=== PATIENT | female | born 1965 | race Caucasian/White ===

== ENCOUNTER → 2016-07-18 | Outpatient (CLI) | payer MEDICARE, MEDICAID ==
[~2016-07-18] MED LIST: ACTOS15 MG PO; ACTOS30 MG PO; BACTRIM DS 8001 TAB PO; BUPROPION HCL150 M2 PO; CIPROFLOXACIN500 MG OR; CYMBALTA30 MG PO; DOCUSATE SODIU250 M1 PO; ESTRADIOL1 MG PO; FAMOTIDINE 20MG20 MG PO; FLEXERIL10 MG PO; GELNIQUE TD; GLIMEPIRIDE 2MG2 MG PO; GOOD SENSE OMEP20 MG PO; HUMALOG MIX 75/10 ML SC; HYDROCODONE-APA1 TA1 PO; INDOCIN25 M1 PO; LANOXIN PO; LANOXIN0.125 MG PO; LANTUS INS100 UNITS/ SC; LASIX20 MG PO; LEVEMIR100 U/M1 SC; LEVOTHROID0.175 MG PO; LEVOTHYROXINE0.2 MG PO; LIPITOR40 MG PO; LORTAB 5/500 501 TAB PO; LORTAB 500 MG-71 TAB PO; LOVAZA1 GM PO; LOVENOX 10100 MG/11 SC; LYRICA 100 MG100 MG PO; LYRICA100 MG PO; METFORMIN500 MG PO; METOPROLOL TART50 MG PO; METOPROLOL25 MG PO; METOPROLOL50 MG PO; NIASPAN500 MG PO; NORCO 325 MG-101 TAB PO; NOVOLIN 70/30 710 ML SC; OMEPRAZOLE40 MG PO; PHENERGAN 25MG.25 M1 PO; POTASSIUM CHLO10 ME3 PO; PRINIVIL5 MG PO; PROMETHAZINE25 M1 PO; PYRIDIUM 200MG200 MG PO; PYRIDIUM100 MG PO; SULFAMETHOXAZOL1 TA6 PO; TALWIN NX 50MG50 MG PO; TYLENOL ES500 MG PO; ULTRAM 50 MG TA50 MG PO; VICODIN 5/500 T1 TAB PO
[2016-07-18 13:57] LABS: HEMOGLOBIN 14.8 g/dL (12.2-16.2); LYMPH # 1.6 K/mm3 (0.7-4.5); LYMPH % 37.1 % (10-50.0)
[2016-07-20 08:50] LABS: BUN 17 mg/dL (7-18); GFR (ESTIMATED) 43 ML/MIN (59-)
== END ==
LOC: CARL-LAB 10:50
PROVIDERS: Internal Medicine
DX: C50.911 Malignant neoplasm of unspecified site of right female breast (principal)

== ENCOUNTER → 2016-08-02 | Outpatient (CLI) | payer MEDICARE, MEDICAID ==
--- NOTE | 2016-08-08 11:12 | RADIOLOGY REPORT PS360 ---
DIG MAMM-DX UNI A/VW-RT W/CAD RIGHT BREAST ULTRASOUND COMPARISON: 03/21/2016 INDICATION: Follow-up abnormal mammogram ORDERING PHYSICIAN: Cesar Willis MD PATIENT AGE: 50 years TECHNIQUE: Standard images of performed with spot compression views. Right breast ultrasound FINDINGS: No discrete mass or malignant appearing microcalcification is evident. Nonspecific asymmetric density once again noted involving the medial aspect of the right breast which appears to compress out likely related to fibroglandular tissue. No malignant appearing mass or malignant appearing microcalcification. Right breast ultrasound: No suspicious nodules. 7 x 5 mm cyst is present at the 2:00 region.. There is an area of questionable shadowing at 2:00. This however did not persist with longitudinal imaging.. The previously noted complex area at 2:00 with a hyperechoic rim and hypoechoic center is not identified on today's exam and was likely due to a hematoma. The area of shadowing could represent some residual from that hematoma. IMPRESSION: Benign findings. No evidence of malignancy BI-RADS CATEGORY: 2_Benign RECOMMENDED FOLLOWUP: Bilateral screening mammogram October 2016 (A letter has been sent to the patient regarding results of the study.)
== END ==
LOC: RAD 12:12
DX: R92.8 Other abnormal and inconclusive findings on diagnostic imaging of breast (principal)
CPT/HCPCS: G0206-RT

== ENCOUNTER → 2017-01-12 | Outpatient (CLI) | payer MEDICARE, MEDICAID ==
[~2017-01-12] MED LIST changes: +HUMALOG KW200 UNIT/1 SQ; +HYDROXYZINE HCL25 M1 PO
[2017-01-13 08:44] LABS: AFP, Tumor Marker 4.9 ng/mL (0.0-8.3)
[2017-01-13 09:37] LABS: Hep C Virus Ab <0.1 (0.0-0.9)
== END ==
LOC: LAB 08:31
PROVIDERS: Internal Medicine
DX: Z85.528 Personal history of other malignant neoplasm of kidney (principal); Z85.43 Personal history of malignant neoplasm of ovary

== ENCOUNTER → 2017-04-14 | Outpatient (CLI) | payer MEDICARE, MEDICAID ==
[2017-04-14 11:05] LABS: HEMOGLOBIN 15.2 g/dL (12.2-16.2); LYMPH # 2.1 K/mm3 (0.7-4.5)
== END ==
LOC: LAB 09:46
PROVIDERS: Nurse Practitioner
DX: Z79.899 Other long term (current) drug therapy (principal)

== ENCOUNTER 2017-04-28 23:08 | Emergency (ER) | payer MEDICARE, MEDICAID ==
[~2017-04-28] VITALS: Ht 170.2 cm; Wt 94.8 kg
[2017-04-28] MEDS ORDERED: HUMULIN R500 UNIT/1 SQ (23:28)
--- OUTSIDE RECORDS SUMMARY | 2017-04-28 23:34 | External Medical Summary Rpt | CCD ---
Author Author , BASSEM LUEVANO Address Unknown Phone [email or web address] Care Team Providers Care Glass Products Inspector Name Role Phone Amando Ramirez MD, Unavailable Unavailable Amando Emery MD, Unavailable Unavailable Martina Emery MD Purpose Continuity of Care Document - 10-19-2012 through 2016 Problems Code Diagnosis DOS Provider Status M25.512 PAIN IN 04-26-2017 LEFT SHOULDER E11.65 TYPE 2 09-13-2016 DIABETES MELLITUS WITH HYPERGLYCEM IA E87.1 HYPO-OSMOLA 09-13-2016 [place] AND HYPONATREMI A 250.00 250.00 DIAB 01-15-2013 [facility], TYPE Hospital II OR UNSPEC TYPE, NOT UNCNTRLD 401.9 401.9 01-15-2013 [place] HYPERTENSIO [facility] N [facility] 729.5 729.5 PAIN 01-15-2013 [place] IN LIMB [facility] V14.0 V14.0 01-15-2013 [place] HX-PENICILL [facility] IN [facility]ERGY Hospital 244.9 244.9 11-18-2012 [place] [facility].01 250.01 DIAB 11-18-2012 [facility], TYPE Hospital I [JUVENILE TYPE], NOT UNCNTRLD 728.71 728.71 11-18-2012 [place] PLANTAR [facility] FIBROMATOSI Hospital S 825.25 825.25 FX 11-18-2012 [place] METATARSAL- [facility] CLOSED Hospital 845.00 845.00 11-18-2012 [place] SPRAIN OF [facility] ANKLE [facility] C56.2 MALIGNANT NEOPLASM OF LEFT OVARY C56.9 MALIGNANT NEOPLASM OF UNSPECIFIED OVARY C64.9 MALIGNANT NEOPLASM OF UNSP KIDNEY, 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 E11.69 TYPE 2 DIABETES MELLITUS WITH OTHER SPECIFIED COMPLICATIO N E11.9 TYPE 2 DIABETES MELLITUS WITHOUT COMPLICATIO NS M54.2 CERVICALGIA N63 UNSPECIFIED LUMP IN BREAST R06.02 SHORTNESS OF BREATH R07.9 CHEST PAIN, UNSPECIFIED R10.9 UNSPECIFIED ABDOMINAL PAIN R53.81 OTHER MALAISE R53.83 OTHER FATIGUE R55 SYNCOPE AND COLLAPSE R92.8 OTH ABN AND INCONCLUSIV E FINDINGS ON DX IMAGING OF BREAST S80.02XA CONTUSION OF LEFT KNEE, INITIAL ENCOUNTER Z03.89 ENCNTR FOR OBS FOR OTH SUSPECTED DISEASES AND COND RULED OUT Z12.31 ENCNTR SCREEN MAMMOGRAM FOR MALIGNANT NEOPLASM OF BREAST Z56.9 UNSPECIFIED PROBLEMS RELATED TO EMPLOYMENT 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 Z85.43 PERSONAL HISTORY OF MALIGNANT NEOPLASM OF OVARY Allergies, Adverse Reactions, Alerts Type Allergy to substance Drug Allergy Adverse Reaction to Substance Substance Reaction Severity PENCILLIN Unknown Unknown Penicillin I-HIVES Unknown Aspirin HAS 1 Unknown KIDNEY-CONTRAINDICATE D Oxycodone BLOOD PRESSURE DROPS Unknown VERY LOW Clinical Alert Notifications Alert Diabetes: no A1C in the last 6 months Diabetes: no eye exam in the last 365 days Diabetes: no influenza vaccine in the last 365 days Diabetes: no lipid panel in the last 365 days Diabetes: no urine protein screening in the last 365 days Medications Na ND Rx Da Fi Fi Am Da Di Ph RX Ph St me C No te ll ll ou ys ag ar # ys at rm s nt no ma ic us Or Da si cy ia de te s n re d AC 51 06 0 No ET 07 -3 AM 90 0- Lo IN 16 20 ng OP 19 13 er HE 9H N Ac W/ ti CO ve DE IN E #3 TA K Vital Signs 01-15-2013 15:23 Name Value Interpretat Reference Comment ion Range BP 86 mm[Hg] Diastolic BP Systolic 131 mm[Hg] Heart 66 /min Rate/Pulse O2% 97 % Respiratory 20 /min Rate 01-15-2013 15:22 Name Value Interpretat Reference Comment ion Range BP 86 mm[Hg] Diastolic BP Systolic 131 mm[Hg] Heart 66 /min Rate/Pulse O2% 97 % Respiratory 20 /min Rate 11-18-2012 21:18 Name Value Interpretat Reference Comment ion Range BP 81 mm[Hg] Diastolic BP Systolic 149 mm[Hg] Heart 69 /min Rate/Pulse O2% 98 % Respiratory 18 /min Rate 11-18-2012 20:50 Name Value Interpretat Reference Comment ion Range BP 86 mm[Hg] Diastolic BP Systolic 159 mm[Hg] Heart 65 /min Rate/Pulse O2% 98 % Respiratory 18 /min Rate 10-19-2012 17:28 Name Value Interpretat Reference Comment ion Range Body 98 [degF] Temperature BP 64 mm[Hg] Diastolic BP Systolic 145 mm[Hg] Heart 62 /min Rate/Pulse O2% 97 % Respiratory 20 /min Rate 10-19-2012 17:27 Name Value Interpretat Reference Comment ion Range Body 98 [degF] Temperature BP 64 mm[Hg] Diastolic BP Systolic 145 mm[Hg] Heart 62 /min Rate/Pulse O2% 97 % Respiratory 20 /min Rate Results Labs Lab Lab Date Result Refere Interp Status Commen Order Detail nces retati t Range on CBC w auto diff (04-14-2017 09:49) Automat 2 = 9.3 7.4-10. complet ed 017 fl 4 ed blood 09:49 platele t mean volume suzan Blood = 4.7 4.8-10. complet leukocy 017 K/MM3 8 ed faby 09:49 count (number /volume ) Automat = 13.4 11.5-17 complet ed 017 % .5 ed erythro 09:49 cyte distrib ution width Red = 4.41 4.2-5.4 complet blood 017 M/mm3 ed cell 09:49 count Blood = 84 142-424 complet platele 017 K/mm3 ed t count 09:49 Absolut 2 = 0.4 0.1-1.0 complet e 017 K/mm3 ed monocyt 09:49 e count Mean = 34.4 27-31.2 complet corpusc 017 pg ed ular 09:49 hemoglo bin ([facility]) determ Lymphoc = 44.0 10-50.0 complet yte 017 % ed count, 09:49 blood, automat ed Absolut 2 = 2.1 0.7-4.5 complet e 017 K/mm3 ed lymphoc 09:49 yte count Blood = 15.2 12.2-16 complet hemoglo 017 g/dL .2 ed bin 09:49 measure ment (mass/v olum Blood = 45.4 37.0-47 complet hematoc 017 % .0 ed rit 09:49 (volume fractio n) Granulo 2 = 45.6 37.0-80 complet cyte 017 % .0 ed percent 09:49 age Blood = 2.2 1.8-7.8 complet granulo 017 K/mm3 ed cytes 09:49 automat ed count (numb Automat 2 = 2.3 % 0.1-12. complet ed 017 0 ed blood 09:49 eosinop hils/10 0 leukocy t Automat = 0.1 0.0-0.4 complet ed 017 K/mm3 ed blood 09:49 eosinop hil count Baso % = 0.4 % 0.1-2.0 complet 017 ed 09:49 Automat 2 = 0.0 0-0.2 complet ed 017 K/MM3 ed blood 09:49 basophi l count (count/ vo [place] % = 7.7 % 1.7-9.3 complet 017 ed 09:49 Automat 2 = 103.1 82.2-97 complet ed 017 fl .8 ed erythro 09:49 cyte mean corpusc ular v Automat = 33.4 31.8-35 complet ed 017 g/dl .4 ed erythro 09:49 cyte mean corpusc ular h Opiates and Oxycodone(GC/MS),U (02-20-2017 09:14) Opiates Positiv . complet 017 e ed 09:14 Hydroco Positiv . complet done 017 e ed 09:14 Hydromo Negativ Cutoff= complet rphone 017 e 100 ed 09:14 Morphin Negativ Cutoff= complet e 017 e 100 ed 09:14 Codeine Negativ Cutoff= complet 017 e 100 ed 09:14 Oxycodo Negativ Cutoff= complet ne/Oxym 017 e 100 ed orph 09:14 Hydroco 282 Cutoff= complet done 017 ng/mL 100 ed GC/MS, 09:14 Urine Procedures Procedure DOS Code Location Performer Comment APPLICATI 93.54 [facility] ON OF [place] Encounters Encounter Start End Date Code Location Performer Type Date Emergency THONY Ramirez MD (ER) 3 15:02 3 15:39 [facility] Emergency THONY Emery MD (ER) 3 20:25 3 21:20 [facility] Emergency THONY Lugo (ER) 3 16:55 3 17:32 [facility] Robert Molina
--- OUTSIDE RECORDS SUMMARY | 2017-04-28 23:34 | External Medical Summary Rpt | CCD ---
Demographics Preferred Language Arabic Marital Status Unknown Hindu Affiliation Unknown Race Unknown Ethnic Group Unknown Author Author , BASSEM LUEVANO Address Unknown Phone Immunization No patient found.
--- OUTSIDE RECORDS SUMMARY | 2017-04-28 23:34 | External Medical Summary Rpt | CCD ---
Demographics Preferred Language Danish Marital Status Unknown Samaritan Affiliation Unknown Race Unknown Ethnic Group Unknown Author Author , BASSEM LUEVANO Address Unknown Phone Immunization No patient found.
--- OUTSIDE RECORDS SUMMARY | 2017-04-28 23:34 | External Medical Summary Rpt | CCD ---
Author Author , BASSEM LUEVANO Address Unknown Phone [email or web address] Care Team Providers Care Fsr Name Role Phone Amando Ramirez MD, Unavailable Unavailable Amando Emery MD, Unavailable Unavailable Martina Emery MD Purpose Continuity of Care Document - 10-19-2012 through 2016 Problems Code Diagnosis DOS Provider Status M25.512 PAIN IN 04-26-2017 LEFT SHOULDER E11.65 TYPE 2 09-13-2016 DIABETES MELLITUS WITH HYPERGLYCEM IA E87.1 HYPO-OSMOLA 09-13-2016 [place] AND HYPONATREMI A 250.00 250.00 DIAB 01-15-2013 [facility], TYPE Hospital II OR UNSPEC TYPE, NOT UNCNTRLD 401.9 401.9 01-15-2013 [place] HYPERTENSIO [facility] N [facility] 729.5 729.5 PAIN 01-15-[address] [place] [address] [facility] V14.0 V14.0 01-15-2013 [place] HX-PENICILL [facility] IN ALLERGY Hospital 244.9 244.9 11-18-2012 [place] [facility]01 250.01 DIAB 11-18-2012 [facility], TYPE Hospital I [JUVENILE TYPE], NOT UNCNTRLD 728.71 728.71 11-18-2012 [place] PLANTAR [facility] FIBROMATOSI Hospital S 825.25 825.25 FX 11-18-2012 [place] METATARSAL- [facility] CLOSED Hospital 845.00 845.00 11-18-2012 [place] SPRAIN OF [facility] ANKLE [facility] C56.2 MALIGNANT NEOPLASM OF LEFT OVARY C56.9 [...] UNSPECIFIED PROBLEMS RELATED TO EMPLOYMENT 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
[2017-04-28 23:57] LABS: HEMOGLOBIN 15.2 g/dL (12.2-16.2); LYMPH # 1.2 K/mm3 (0.7-4.5); LYMPH % 25.7 % (10-50.0)
[2017-04-29 00:20] LABS: URINE BILIRUBIN - DIPSTICK NEGATIVE (NEG); URINE BLOOD NEGATIVE (NEG)
--- NOTE | 2017-04-29 00:43 | Emergency Room Report ---
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 Y Clinical Suspician of Infection? N Mental Status: 1 - Regular (Normal Baseline) Sepsis Risk:Low Sepsis Risk Have you (or family members/close friends) recently traveled outside the [place]? N If Yes, where/when: Have you had exposure to infectious disease within the past month? N TB? Other? Specify: Source patient, RN notes reviewed, family, old records Exam Limitations no limitations Comment wf with achey and fever with exposure to flu - no rash and no cough has liver disease and followed by Cardiac Chest Pain Chest pain indicative of cardiac No Timing/Duration this evening Severity moderate ALLERGIES Coded Allergies: acetaminophen (From Percocet) (Intermediate, PASS OUT 07/05/16) oxycodone (From Percocet) (Intermediate, PASS OUT 07/05/16) aspirin (Mild, NOT TO TAKE SECONDARY TO 1 KIDNEY 07/05/16) Home Medications Active Scripts HYDROCODONE/ACETAMINOPHEN ([place] 10-325 Tablet) 1 TAB PO QID #120 TAB Prov: 10/04/16 Reported Medications OMEGA-3 ACID ETHYL ESTERS (Lovaza) 2 TAB PO BID Pregabalin (Lyrica 100Mg) 200 MG PO TID Levothyroxine Sodium 0.2 MG PO DAILY #100 TAB Furosemide (Lasix) 20 MG PO BID Atorvastatin Calcium (Atorvastatin) 40 MG PO DAILY Insulin Regular, Human (Humulin R U-500 Kwikpen) 500 UNIT SQ TID INSULIN NPL/INSULIN LISPRO (Humalog Mix 75-25 Vial) 120 UNITS SC TID Famotidine (Famotidine 20MG) 20 MG PO BID BUPROPION HCL (Bupropion XL) 150 MG PO DAILY Cyclobenzaprine Hcl (Flexeril) 10 MG PO BID POTASSIUM CHL (Potassium Chloride) (Unknown Dose) PO DAILY History Medical History General CAD? No Angina: No NV: No Hypertension? Yes Hyperlipidemia? Yes CHF? No DVT? No PE? No COPD? No Asthma? No Anemia? No GERD? No Gastric ulcers? No GI Bleed? No Hernia? No Thyroid Problems? Yes Hypothyroidism? No CVA? No Seizures? No Diabetes? Yes Insulin Dependent: Yes Insulin Pump: No Home FSBS? Yes Renal Insuffiency? No End Stage Renal Disease? No UTI? Yes Stones? No BPH? No GB Disease: Yes Nephritic Syndrome? No Asplenia? No Hepatitis? No Sickle Cell Disease? No Arthritis? Yes Migraines? No Cataracts? No Glaucoma? No MRSA? No HIV? No TB? No Anxiety? No Depression? 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 Respiratory denies cough, denies shortness of breath, denies wheezing Cardiovascular denies chest pain, denies syncope Gastrointestinal see HPI, denies abdominal pain, denies diarrhea, denies vomiting, other Genitourinary denies: dysuria, frequency, hesitancy, hematuria. Musculoskeletal denies back pain, denies joint pain, denies joint swelling, denies neck pain Skin denies rash Psychiatric/Neurological denies headache, denies seizure Physical Exam Vital Signs Vital Signs Date Time Temp Pulse Resp B/P Pulse O2 O2 Flow FiO2 Ox Delivery Rate 04/29 0003 100.5 88 18 176/66 95 04/28 2316 100.5 85 18 162/72 94 - WBC >12,000 or <4,000 or 10% bands? 2 or more SIRS Criteria Met? B/P: MAP:102 Creatinine >2.0? UA output<0.5ml/kg/hr for 2 hrs? Platelet count >100,000? Lactate >2.0mmol/1? INR >1.2 or PTT > than 60 sec? Evidence of Organ Dysfunction? Provider documented clinical suspician of infection? N Sepsis Criteria Count: 1 Sepsis Risk: Low Sepsis Risk General Appearance no apparent distress Eye Exam - bilateral eye PERRL, bilateral eye EOMI Ear, Nose, Throat normal ENT inspection Neck non-tender Respiratory Status No: respiratory distress. Lung Sounds bilateral: decreased breath sounds. 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 No Results/Orders Laboratory Tests 04/28/17 2330: Sodium 130 L, Potassium 3.4 L, Chloride 102, Carbon Dioxide 29, BUN 21 H, Creatinine 1.4 H, Estimated Creat Clear 70, Estimated GFR (MDRD) 39 L, Glucose 84, Calcium 9.3, Total Bilirubin 1.0, AST 62 H, ALT 52, Alkaline Phosphatase 159 H, Total Protein 8.0, Albumin 3.4, Globulin 4.6 H, Albumin/Globulin Ratio 0.7 L, WBC 4.6 L, RBC 4.41, Hgb 15.2, Hct 44.2, MCV 100.4 H, RDW 13.6, Plt Count 87 L, MPV 8.9, Gran % 63.4, Gran # 2.9, Lymphocytes % 25.7, Monocytes % 7.8, Eosinophils % 2.6, Basophils % 0.5, Lymphocytes # 1.2, Monocytes # 0.4, Eosinophils # 0.1, Basophils # 0.0, PUBS MCHC 34.3, MCH 34.5 H, Influenza Type A Ag NOT DETECTED, Influenza Type B Ag NOT DETECTED 04/28/17 0015: Urine Color YELLOW, Urine Appearance SL CLOUDY, Urine pH 7.5, Ur Specific [place] 1.010, Urine Protein NEGATIVE, Urine Ketones NEGATIVE, Urine Blood NEGATIVE, Urine Nitrate POSITIVE H, Urine Bilirubin NEGATIVE, Urine Urobilinogen 0.2, Ur Leukocyte Esterase 1+ H, Urine RBC OCC, Urine WBC 5-10, Ur Squamous Epith Cells 3-5, Urine Bacteria 3+, Urine Glucose TRACE H Current Medication Orders Sig/[place] Start time Last Medication Dose Route Stop Time Status Admin Ceftriaxone Sodium 1 GM ONCE ONE 04/29 0100 AC Sodium Chloride 50 ML IV 04/29 0129 Acetaminophen 0 .STK-MED ONE 04/28 2359 DCr PO Acetaminophen 650 MG ONCE ONE 04/28 2345 DCr 04/29 PO 04/28 234 0000 Sodium Chloride 10 ML PRN PRN 04/28 234 AC IV 04/29 233 Orders Procedure Date/time Status URINALYSIS/COMPLETE 04/28 2357 Complete CHEST(2 VIEWS-NOT PORTABLE) 04/28 2356 Active STREP SCREEN THROAT 04/28 2333 Complete IV SALINE LOCK 04/28 2332 Active INFLUENZA A&B ANTIGENS 04/28 2332 Complete COMPLETE METABOLIC PANEL 04/28 2332 Complete CBC WITH AUTO DIFF 04/28 2332 Complete CULTURE, THROAT 04/28 2330 Active CULTURE, URINE 04/28 0015 Active XRAY/CT/US XRAY/CT/US XRAY chest XR interpretation by reviewed by me Xray Results normal/NAD Departure Departure Time of Disposition 51 Disposition DC Home or Self Care(routine) Clinical Impression Primary Impression: UTI (urinary tract infection) Qualifiers: Urinary tract infection type: acute cystitis Hematuria presence: without hematuria Qualified Code: N30.00 - Acute cystitis without hematuria Secondary Impressions: Renal insufficiency Condition STABLE Referrals PAVAN DAVE (Family) Patient Instructions DI for Urinary Tract Infection (UTI) Additional Instructions use meds and see pcp for follow up Discharge Counseling Counseled pt/family regarding diagnosis, test results, medications/RX, follow up needs Prescriptions Current Visit Scripts CEPHALEXIN (Keflex 500MG Capsule) 500 MG PO Q8H #21 CAP ED Critical Care Critical Care No at 0055
[2017-04-29] MEDS ORDERED: KEFLEX 500MG.500 MG PO (00:55)
[2017-04-29 01:17] VITALS: BP 124/70
--- NOTE | 2017-04-29 08:47 | RADIOLOGY REPORT PS360 ---
CHEST(2 VIEWS-NOT PORTABLE) COMPARISON: PA and lateral chest 11/30/2016 HISTORY: The liver TECHNIQUE: PA and lateral chest FINDINGS: The lung quinn are well expanded. There is partial silhouetting the right heart border and there appears be an ill-defined pneumonic infiltrate in right middle lobe. Remainder lung quinn are clear. Cardiac size normal and the vascularity is normal and is no pleural fluid. IMPRESSION: Minimal right middle lobe bronchopneumonia.
== END 2017-04-29 01:30 | disposition home or self-care (01) ==
LOC: ER 23:08
PROVIDERS: Emergency Medicine
DX: N30.00 Acute cystitis without hematuria (principal); N28.9 Disorder of kidney and ureter, unspecified; Z88.6 Allergy status to analgesic agent; Z88.5 Allergy status to narcotic agent; Z79.4 Long term (current) use of insulin; Z79.899 Other long term (current) drug therapy; I10 Essential (primary) hypertension; E78.5 Hyperlipidemia, unspecified; E11.9 Type 2 diabetes mellitus without complications; Z85.528 Personal history of other malignant neoplasm of kidney; Z85.43 Personal history of malignant neoplasm of ovary; M79.7 Fibromyalgia; K74.60 Unspecified cirrhosis of liver; Z90.710 Acquired absence of both cervix and uterus